=== PATIENT | male | born 1990 | race African-American/Black ===

== ENCOUNTER 2017-10-01 13:56 | Emergency (ER) | payer SELFPAY ==
[~2017-10-01] VITALS: Ht 172.7 cm; Wt 99.8 kg
[2017-10-01] MEDS ORDERED: ALBU0.63 NEB (14:11)
--- NOTE | 2017-10-01 14:43 | NUR ---
Pt.was seen by .
[2017-10-01] MEDS ORDERED: HYDROCODONE/APAP 5-325MG TABLET ONE (14:52)
[2017-10-01] MEDS: HYDROCODONE/APAP 5-325MG TABLET PO ONE (14:53)
--- NOTE | 2017-10-01 16:20 | NUR ---
Patient discharged to home in stable conditon. Written and verbal after care instructions given. Patient verbalizes understanding of instructions.
== END 2017-10-01 16:20 | disposition home or self-care (01) ==
LOC: ER 13:56
DX: S92.352A Displaced fracture of fifth metatarsal bone, left foot, initial encounter for closed fracture (principal); J45.909 Unspecified asthma, uncomplicated; Z79.899 Other long term (current) drug therapy; X58.XXXA Exposure to other specified factors, initial encounter; Y92.89 Other specified places as the place of occurrence of the external cause; Y99.8 Other external cause status; Y93.66 Activity, soccer
CPT/HCPCS: 29515; 73630; 99284; A4663